=== PATIENT | female | born 1965 | race Hispanic/Latino ===

== ENCOUNTER 2019-04-07 15:42 | Emergency (ER) | payer SELFPAY ==
[2019-04-07] MEDS ORDERED: CLONIDINE HCL 0.2 MG TABLET PO ONE (16:28)
== END 2019-04-07 17:17 | disposition home or self-care (01) ==
LOC: EDH 15:42
DX: H11.32 Conjunctival hemorrhage, left eye (principal); E11.9 Type 2 diabetes mellitus without complications; Z87.891 Personal history of nicotine dependence

== ENCOUNTER 2023-12-17 11:16 | Emergency (ER) | payer BC, OTHER ==
[~2023-12-17] VITALS: Ht 157.5 cm; Wt 59.0 kg
[2023-12-17 13:34] LABS: BASOPHILS # (AUTO) 0.06 K/uL (0.00-0.20); BASOPHILS % (AUTO) 0.5 % (0.0-5.0); EOSINOPHILS # (AUTO) 0.19 K/uL (0.00-0.70); EOSINOPHILS % (AUTO) 1.6 % (0.0-8.0); HEMATOCRIT 43.6 % (36-48); IMMATURE GRANULOCYTE ABSOLUTE 0.07 K/uL (0-1); LYMPHOCYTES # (AUTO) 2.3 K/uL (1.0-4.8); LYMPHOCYTES % (AUTO) 18.7 % (21.0-51.0); MEAN CORPUSCULAR HEMOGLOBIN 29.6 pg (27.0-33.0); MEAN CORPUSCULAR HGB CONC 33.5 g/dL (32.0-36.0); MEAN CORPUSCULAR VOLUME 88.3 fL (79-99); MONOCYTES # (AUTO) 0.5 K/uL (0.1-1.0); NEUTROPHILS # (AUTO) 9.1 K/uL (1.8-7.7); NEUTROPHILS % (AUTO) 74.6 % (40.0-77.0); PLATELET COUNT (AUTO) 284 K/uL (130-400); RED BLOOD CELL COUNT(AUTO) 4.94 MIL/uL (4.00-5.50); RED CELL DISTRIBUTION WIDTH 12.8 % (11.0-15.5); WHITE BLOOD COUNT (AUTO) 12.1 K/uL (4.8-10.8)
[2023-12-17 13:46] LABS: CREATININE 0.6 mg/dL (0.5-1.0)
[2023-12-17 14:00] LABS: CREATINE KINASE, TOTAL 28 U/L (21-232); THYROID STIMULATING HORMONE 0.98 uIU/mL (0.36-3.74)
[2023-12-17] MEDS ORDERED: IOHEXOL-350 75 ML VIAL IV ONE (14:27)
[2023-12-17 15:46] VITALS: BP 129/81; PULSE 86; RESP 16; O2SAT 98
[2023-12-17 15:48] LABS: APPEARANCE,URINE CLEAR (CLEAR); BILIRUBIN,URINE NEGATIVE (NEGATIVE); COLOR,URINE LIGHT-YELLOW (YELLOW); GLUCOSE, URINE (UA) >=1000 mg/dL (NEGATIVE); KETONES,URINE 60 mg/dL (NEGATIVE); LEUKOCYTE ESTERASE ,URINE NEGATIVE Leu/uL (NEGATIVE); NITRATE,URINE NEGATIVE (NEGATIVE); OCCULT BLOOD,URINE NEGATIVE (NEGATIVE); PH,URINE 5.5 (5.0-8.0); PROTEIN,URINE NEGATIVE (NEGATIVE); UROBILINOGEN,URINE 0.2 mg/dL (0.2-1.0)
[2023-12-17 15:49] LABS: ADD UA MICROSCOPIC YES
[2023-12-17 15:55] LABS: BACTERIA,URINE RARE /HPF (None Seen); RBC,URINE 0-1 /HPF (0-1); WBC,URINE 0-1 /HPF (0-1)
== END 2023-12-17 16:46 | disposition home or self-care (01) ==
LOC: EDH 11:16
DX: R00.2 Palpitations (principal); R06.02 Shortness of breath; E11.9 Type 2 diabetes mellitus without complications; F41.9 Anxiety disorder, unspecified; E78.00 Pure hypercholesterolemia, unspecified; I10 Essential (primary) hypertension
CPT/HCPCS: 99284; 71270; 84443; 82550; 84484; 80048; 85025; 81001; 36415; 93005; Q9967